=== PATIENT | female | born 1950 | race Caucasian/White ===

== ENCOUNTER → 2017-08-13 | Day surgery (SDC) | payer MEDICARE, BC ==
[~2017-08-13] VITALS: Ht 168.9 cm; Wt 77.4 kg
[~2017-08-13] MED LIST: ACETAMINOPHEN 1000 MG/100 ML 100 ML IV ONE; ACETAMINOPHEN/HYDROcodone 325 MG/5 MG TAB PO PRN; ATOR10TA15 PO; BUPIVACAINE/EPINEPHRINE 0.25% 50 ML VIAL ONE; CEFAZOLIN INJ 2,000 MG in SODIUM CHLORIDE 0.9% INJ 100 ML IV PRN; CHLORHEXIDINE GLUCONATE 2 % 1 PACK (2 CLOTHS) TOPICAL PRN; DEXAMETHASONE SOD PHOS 4 MG/ML VIAL IV ONE; DO NOT ADM ANY ANTICOAGULANT DRUGS PRN; ENOXAPARIN SODIUM 30 MG/0.3 ML SYRINGE SQ SCH; ESTR0.02 T-DERMAL; GLYCOPYRROLATE 1 MG/5 ML SYRINGE IV PUSH ONE; HYDROmorphone HCL PF 2 MG/ML VIAL ONE; KETAMINE HCL 10 MG/5 ML SYRINGE IV PUSH ONE; KETOROLAC TROMETHAMINE 30 MG/ML (IVP) VIAL IV PUSH ONE; LACTATED RINGER'S 1000 ML INJ 1,000 ML IV ONE; LACTATED RINGER'S 1000 ML INJ 1,000 ML IV SCH; LACTATED RINGER'S 1000 ML IV PRN; LIDOCAINE HCL 1% PF 5 ML SYRINGE OTHER ONE; METOPROLOL TARTRATE 25 MG TAB PO PRN; MIDAZOLAM HCL 2 MG/2 ML VIAL ONE; MORPHINE SULFATE 8 MG/ML INJ IV PUSH PRN; NEOSTIGMINE 5 MG/5 ML SYRINGE IV PUSH ONE; ONDANSETRON HCL 4 MG/2 ML VIAL IV ONE; ONDANSETRON HCL 4 MG/2 ML VIAL IV PUSH PRN; PHENYLEPH/NS 1000 MCG/10 ML SYR IV ONE; POVIDONE IODINE 5% (ANTISEPSIS KIT) 4 APPLICATIONS EACH NARE PRN; PROPOFOL 200 MG/20 ML AMP IV ONE; Post-op Orders (for Pharmacy) XX ONE; ROCURONIUM INJ 50 MG/5 ML SYRINGE IV PUSH ONE; SODIUM CHLORID 0.9% 500 ML IV PRN; SUCCINYLCHOLINE CHLORIDE 100 MG/5 ML SYRINGE IV PUSH ONE
[2017-08-13 07:15] LABS: AUTOMATED NEUTROPHIL # 3.2 TH/MM3 (1.8-7.7); BASOPHIL % 0.9 % (0.0-2.0); EOSINOPHIL # 0.1 TH/MM3 (0-0.4); EOSINOPHIL % 2.3 % (0.0-4.0); HEMATOCRIT 39.1 % (35.0-46.0); HEMOGLOBIN 13.3 GM/DL (11.6-15.3); LYMPH % 27.5 % (9.0-44.0); LYMPHOCYTE # 1.4 TH/MM3 (1.0-4.8); MEAN CELL VOLUME 93.8 FL (80.0-100.0); MEAN CORPUSCULAR HEMOGLOBIN 31.8 PG (27.0-34.0); MEAN CORPUSCULAR HGB CONC 33.9 % (32.0-36.0); MEAN PLATELET VOLUME 7.6 FL (7.0-11.0); MONO % 7.6 % (0.0-8.0); MONOCYTE # 0.4 TH/MM3 (0-0.9); NEUT % 61.7 % (16.0-70.0); PLATELET COUNT 211 TH/MM3 (150-450); RED BLOOD COUNT 4.17 MIL/MM3 (4.00-5.30); RED CELL DISTRIBUTION WIDTH 13.3 % (11.6-17.2); WHITE BLOOD COUNT 5.3 TH/MM3 (4.0-11.0)
[2017-08-13 07:36] LABS: BICARBONATE 24.1 MEQ/L (21.0-32.0); CALCIUM 8.9 MG/DL (8.5-10.1); CREATININE 1.01 MG/DL (0.50-1.00)
[2017-08-13 09:54] VITALS: PULSE 84
--- NOTE | 2017-08-13 10:10 | PD.PROCEDR ---
Procedure Note Procedure Operative report Preoperative diagnosis hiatal hernia with gastroesophageal reflux disease Postoperative diagnosis Same Procedure Laparoscopic repair hiatal hernia with [place] BIOA mesh and partial fundoplication Surgeon Tre Wilson MD General Studies Program Chair Ivan Saleh MS3 Anesthesia General endotracheal Indications for procedure The patient presented to me with a long history of gastroesophageal reflux disease which she treated with lifestyle and diet changes and had improvement. She had previous upper endoscopy which showed a 9 cm hiatal hernia with a small paraesophageal component biopsy-proven esophagitis. She occasionally feels like food gets stuck in her upper esophagus. She has had dilatations in the past. Did a barium swallow which demonstrated large hiatal hernia with the upper 1 12:45 third of her stomach in her chest. There is reflux of contrast into the esophagus. Patient ultimately decided to proceed with surgical therapy. Intraoperative findings Moderate hiatal hernia with the upper portion of stomach and chest. Primary repair with Richmond bio a mesh and 240-270 fundoplication. Estimated blood loss less than 10 mL. Description of procedure in detail The patient was identified as Savita Bragg taken to the operating room and placed in a supine position. Sequential compression devices were placed on bilateral lower extremities. Following induction of adequate general endotracheal anesthesia patient's abdomen was prepped and draped in usual sterile fashion with Betadine. A timeout procedure was performed. Following completion timeout procedure everyone's satisfaction within the room local anesthetic was infiltrated the proposed incision sites. An initial incision was in the supraumbilical position was vertically oriented and was 2 cm in length. Dissection continued posteriorly to level the supraumbilical midline fascia. There Prolene suture was encountered from her previous abdominoplasty. Incision was made in the midline redundant suture was excised and the peritoneum was entered sharply. The applied medical balloon was sewn trocar was placed into the peritoneal cavity its balloon inflated and CO2 insufflation to level of 15 mmHg ensued. Patient was placed in a reverse Trendelenburg position. Adhesions in the right upper quadrant were identified. 3 upper abdominal 5 mm trochars were then placed and using these and the harmonic scalpel adhesions were taken down the right upper quadrant to facilitate placement of the fourth 5 mm trocar. A dominant flex liver retractor was placed in the right lateral trocar retracting the lateral left lobe the liver anteriorly and it was held in place with a robot arm. Attention was then turned to dissection. Using the harmonic scalpel gastrohepatic ligament was taken down lateral for identification of the right side diaphragmatic crura. Hernia sac was circumferentially mobilized from the mediastinum down into the peritoneal cavity. The gastroesophageal junction was identified and a posterior window was developed. Short gastric vessels were taken down along the superior greater curvature of the stomach using the harmonic scalpel. The hiatal hernia defect was then closed with 3 interrupted 0 Ethibond sutures using the suture call center assistant device and a Richmond bio a pledget. A 38 Uzbek esophageal bougie was then placed by the nurse torque tester into the stomach. The fundus of the stomach was brought through the posterior window. A Richmond bile a U-shaped piece of mesh which was customized in size was then placed around the esophagus and a reverse C orientation. Sutures were placed at the 6:00 and 10 o'clock position to fasten the mesh to the diaphragm muscle. A partial fundoplication was then performed using interrupted 0 Ethibond sutures and the suture call center assistant device. Initially the posterior wrap was fastened to the right side diaphragmatic crew using 2 sutures. 2 sutures were then placed the partial-thickness right side of esophagus to right side of wrap and then 2 sutures were placed partial thickness esophagus full-thickness wrap on the left side. Esophageal bougie was then removed without difficulty. Photographs were taken and completed fundoplication. 4 mL of Tisseel fibrin sealant was then placed to encourage apposition of the door bio a mesh to the diaphragm muscle. Remaining local anesthetic was placed in subdiaphragmatic position. Dominant follicular retractor was removed. Trochars were removed under direct visualization was notes a bleeding from trocar sites. The abdomen was actively desufflated to the supraumbilical port which was then removed. Supraumbilical fascial defect was closed with interrupted 0 Vicryl sutures. Port site skin incisions were irrigated and closed with 4 Monocryl subcuticular sutures. Dressings were applied with Mastisol and half-inch brown Steri-Strips. The patient tolerated the procedure without apparent complication. Sponge needle and instrument counts were correct at the end of the case. Tre Wilson MD Aug 13, 2017 10:10
--- NOTE | 2017-08-13 12:32 | EKG ---
Date Performed: 08/13/2017 Time Performed: 06:51:07 PTAGE: 67 years EKG: Sinus rhythm NORMAL ECG PREVIOUS TRACING : 07/10/2015 02.19 Since the previous tracing, no significant change noted DOCTOR: Ramirez Salgado Interpretating Date/Time 08/13/2017 12:31:57
[2017-08-13 12:37] VITALS: BP 103/66; PULSE 65; RESP 12; O2SAT 94
== END | disposition home or self-care (01) ==
LOC: HSDC 05:48
PROVIDERS: ATTEND Surgery Trauma Surgery
DX: K44.9 Diaphragmatic hernia without obstruction or gangrene (principal); K21.9 Gastro-esophageal reflux disease without esophagitis; E78.5 Hyperlipidemia, unspecified; Z01.810 Encounter for preprocedural cardiovascular examination
CPT/HCPCS: 00790; 43282; 80048; 85025; 93005; C1781; J0131; J0330; J0690; J1100; J1170; J1885; J2250; J2370; J2405; J2710; J3010; J7120